=== PATIENT | female | born 1955 | race Caucasian/White ===

== ENCOUNTER 2017-04-30 17:01 | Outpatient (CLI) | payer BC ==
[2017-04-30 18:27] LABS: Hematocrit 44.3 % (36.0-47.0); Mean Platelet Volume 8.3 fL (7.4-10.4); Red Blood Cell (RBC) Count 4.81 mill/uL (4.20-5.40); White Blood Cell (WBC) Count 8.4 thou/uL (4.8-10.8)
[2017-04-30 18:49] LABS: ALT (SGPT) 16 U/L (8-55); AST (SGOT) 21 U/L (5-34); Alkaline Phosphatase 89 U/L (40-150); Anion Gap 12 mmol/L (10-20); BUN (Urea Nitrogen) 16 mg/dL (9.8-20.1); Bilirubin, Direct 0.2 mg/dL (0.1-0.3); Bilirubin, Total 0.6 mg/dL (0.2-1.2); Calc. Creatinine Clearance 0 mL/min (70-130); Calcium 9.8 mg/dL (7.8-10.44); Carbon Dioxide 28 mmol/L (22-29); Chloride 101 mmol/L (98-107); Estimated GFR-MDRD 79; Hemoglobin A1c 5.2 % (4.0-6.0); Protein, Total 7.3 g/dL (6.0-8.3)
--- NOTE | 2017-04-30 19:34 | RAD ---
CHEST PA AND LATERAL: 04/30/17 HISTORY: 61-year-old female for preoperative evaluation. COMPARISON: 08/15/14. FINDINGS: Heart size is normal. The lungs are clear. IMPRESSION: No acute intrathoracic disease. No evidence for pneumonia. Gastric lap band in place. POS: [facility]
--- NOTE | 2017-05-03 17:54 | EKG ---
Test Reason : Blood Pressure : / mmHG Vent. Rate : 061 BPM Atrial Rate : 061 BPM P-R Int : 144 ms QRS Dur : 092 ms QT Int : 434 ms P-R-T Axes : 054 017 045 degrees QTc Int : 436 ms Normal sinus rhythm Inferior infarct , age undetermined Abnormal ECG When compared with ECG of 15-AUG-2014 21:36, No significant change was found Confirmed by KALA NEVAREZ ([id number]) on 05/03/2017 5:54:16 PM Referred By: Confirmed By:KALA NEVAREZ
== END 2017-04-30 17:02 | disposition home or self-care (01) ==
LOC: LABBT 17:01
PROVIDERS: ATTEND Surgery
DX: Z01.818 Encounter for other preprocedural examination (principal); K94.23 Gastrostomy malfunction
CPT/HCPCS: 71020; 80053; 80076; 83036; 85027; 93005; 93010

== ENCOUNTER 2018-03-01 11:43 | Outpatient (CLI) | payer BC | END 2018-03-01 11:44 | disposition home or self-care (01) | LOC: BICMAMMO 11:43 | PROVIDERS: ATTEND Obstetrics & Gynecology | DX: Z12.31 Encounter for screening mammogram for malignant neoplasm of breast (principal); Z80.3 Family history of malignant neoplasm of breast | CPT/HCPCS: 77066; G0279 ==

== ENCOUNTER 2018-12-03 08:32 | Outpatient (CLI) | payer BC ==
--- NOTE | 2018-12-03 09:09 | ULT ---
US Abdominal History: [Abdominal pain] Comparison: None. Findings: Real-time grayscale and color evaluation of the abdomen was performed. Pancreas appears be mildly atrophied. This portion of the aorta and IVC are unremarkable. Diffuse hepatic steatosis. Liver measures 15.9 cm in length. There is cholelithiasis. Portal vein is patent with antegrade flow. Gallbladder wall is a 3 mm area no pericholecystic fluid. Common bile duct is 4 mm. Right kidney measures 11.5 x 4.7 x 4.8 cm without mass, hydronephrosis, or abnormal calcifications. Spleen measures 11.6 cm in length. Left kidney measures 11.7 x 5.7 x 5.1 cm without mass, hydronephrosis, or abnormal calcifications. Impression: 1. Diffuse hepatic steatosis. 2. Cholelithiasis without cholecystitis.
== END 2018-12-03 08:33 | disposition home or self-care (01) ==
LOC: SCSULT 08:32
PROVIDERS: ATTEND Internal Medicine
DX: R10.9 Unspecified abdominal pain (principal); K80.20 Calculus of gallbladder without cholecystitis without obstruction; K76.0 Fatty (change of) liver, not elsewhere classified
CPT/HCPCS: 76700

== ENCOUNTER 2019-02-28 12:10 | Outpatient (CLI) | payer BC ==
[2019-02-28 13:12] LABS: #Eosinphils 0.1 thou/uL (0.0-0.7); #Lymphocytes 2.7 thou/uL (1.20-3.40); #Monocytes 0.8 thou/uL (0.11-0.59); #Neutrophils 7.1 thou/uL (1.40-6.50); %Basophils 0.3 % (0.0-1.0); %Eosinophils 1.2 % (0.0-10.0); %Lymphocytes 25.3 % (21.0-51.0); %Monocytes 7.3 % (0.0-10.0); %Neutrophils 65.8 % (42.0-75.0); Hemoglobin 15.8 g/dL (12.0-16.0); Mean Corpuscular HGB CONC 33.5 g/dL (32.0-36.0); Mean Corpuscular Hemoglobin 30.2 pg (27.0-31.0); Mean Corpuscular Volume 90.3 fL (78.0-98.0); Mean Platelet Volume 8.6 fL (7.4-10.4); Platelet Count 288 thou/uL (130-400); RBC Distribution Width 12.6 % (11.5-14.5); Red Blood Cell (RBC) Count 5.21 mill/uL (4.20-5.40); White Blood Cell (WBC) Count 10.8 thou/uL (4.8-10.8)
[2019-02-28 13:35] LABS: ALT (SGPT) 27 U/L (8-55); AST (SGOT) 22 U/L (5-34); Albumin 4.4 g/dL (3.4-4.8); Alkaline Phosphatase 112 U/L (40-150); Anion Gap 13 mmol/L (10-20); BUN (Urea Nitrogen) 14 mg/dL (9.8-20.1); Bilirubin, Direct 0.2 mg/dL (0.1-0.3); Bilirubin, Total 0.5 mg/dL (0.2-1.2); Calc. Creatinine Clearance 0 mL/min (70-130); Calcium 9.9 mg/dL (7.8-10.44); Carbon Dioxide 25 mmol/L (23-31); Chloride 104 mmol/L (98-107); Estimated GFR-MDRD 80; Glucose 99 mg/dL (80-115); Protein, Total 7.3 g/dL (6.0-8.3); Sodium 138 mmol/L (136-145)
--- NOTE | 2019-03-01 18:49 | EKG ---
Test Reason : Blood Pressure : / mmHG Vent. Rate : 069 BPM Atrial Rate : 069 BPM P-R Int : 144 ms QRS Dur : 084 ms QT Int : 398 ms P-R-T Axes : 041 012 035 degrees QTc Int : 426 ms Normal sinus rhythm Inferior infarct (cited on or before 30-APR-2017) Anterior infarct , age undetermined Abnormal ECG When compared with ECG of 30-APR-2017 17:38, Anterior infarct is now Present Nonspecific T wave abnormality now evident in Anterior leads Confirmed by JOSEPH PETTIT, DR. Rogers ([id number]) on 03/01/2019 6:49:23 PM Referred By: REINALDO Confirmed By:DR. Ken RUIZ MD
== END 2019-02-28 12:11 | disposition home or self-care (01) ==
LOC: LABBT 12:10
PROVIDERS: ATTEND Surgery
DX: Z01.818 Encounter for other preprocedural examination (principal); K80.20 Calculus of gallbladder without cholecystitis without obstruction
CPT/HCPCS: 80048; 80076; 85025; 93005; 93010

== ENCOUNTER 2019-03-01 06:23 | Day surgery (SDC) | payer BC ==
[2019-02-28 12:13] VITALS: BMI 34.0
[2019-03-01] MEDS ORDERED: Midazolam HCl 2 mg/2 ml Vial ONE (06:36)
[2019-03-01] MEDS ORDERED: Fentanyl 100 MCG/2 ML VIAL ONE ×2 (06:36→08:33)
[2019-03-01] MEDS ORDERED: ceFAZolin Sodium (SDC) 2 GM/100 ML BAG ONE (06:48)
[2019-03-01] MEDS ORDERED: Bupivacaine/Epinephrine 0.25% 30 ML VIAL ONE (07:42)
[2019-03-01] MEDS ORDERED: HYDROcodone/Acetaminophen 5/325 mg Tablet ONE (10:01)
[2019-03-01] MEDS ORDERED: diphenhydrAMINE 50 MG/ML VIAL ONE (10:01)
--- NOTE | 2019-03-01 10:10 | OP ---
DATE OF PROCEDURE: 03/01/2019 PREOPERATIVE DIAGNOSES: Symptomatic gallstones and history of chronic steatohepatitis. POSTOPERATIVE DIAGNOSES: Symptomatic gallstones and history of chronic steatohepatitis. PROCEDURES PERFORMED: 1. Laparoscopic cholecystectomy. 2. Percutaneous liver biopsy. ANESTHESIA: General ESTIMATED BLOOD LOSS: Minimal. COMPLICATIONS: None. SPECIMEN: Gallbladder and liver biopsy. DESCRIPTION OF PROCEDURE: The patient was taken to the operating room and laid supine on the operating room table. After general anesthetic was obtained, the abdomen was prepped and draped in a sterile fashion. A curved incision was made below the umbilicus. Cautery was used to dissect down to the umbilical fascia. Umbilical fascia was incised and held up using a Ivania. The abdominal cavity was entered using a Peggy clamp. Holding stitch of Vicryl was placed on each side of the fascia. Hargrove trocar was placed. High-flow pneumoperitoneum was obtained. An upper midline 5 mm port and 2 right upper quadrant 5 mm ports were placed under direct camera visualization. The gallbladder was retracted from the gallbladder fossa. The peritoneum of the gallbladder was opened anteriorly and posteriorly. The critical view triangle was seen showing only the cystic duct and cystic artery branching from medial to lateral. There were no other branching structures. Two clips were placed proximally on the cystic duct and one laterally. It was cut using laparoscopic scissors. The cystic artery was taken in the same way. Electrocautery was then used to dissect the gallbladder out of the gallbladder fossa. The gallbladder was placed in an Endo catch bag and brought out through the Hargrove. There was no bleeding or bile in the liver bed. The cystic duct stump and cystic artery stump were intact, without evidence of extravasation or bleeding. All port sites were infiltrated using local anesthesia. All ports were removed under camera visualization. Pneumoperitoneum was let down. The Vicryl was used to close the fascial defect below the umbilicus. All incisions were irrigated and closed using 4-0 Monocryl and Dermabond. After the gallbladder was removed. The core needle biopsy was used to obtain three good cores of liver tissue. The bleeding at the liver edge was controlled using cautery. There was no ongoing bleeding. The patient was en route to Recovery in stable condition. All instrument counts, needle counts, and lap counts were correct. Job ID: [id number]
== END 2019-03-01 11:10 | disposition home or self-care (01) ==
LOC: SDC 06:23
PROVIDERS: ATTEND Surgery
PROC: 0F903ZX Drainage of Liver, Percutaneous Approach, Diagnostic (ICD-10-PCS; principal; 2019-03-01)
PROC: 0FT44ZZ Resection of Gallbladder, Percutaneous Endoscopic Approach (ICD-10-PCS; principal; 2019-03-01)
DX: K80.10 Calculus of gallbladder with chronic cholecystitis without obstruction (principal); K76.0 Fatty (change of) liver, not elsewhere classified; E06.3 Autoimmune thyroiditis; Z79.899 Other long term (current) drug therapy; Z88.2 Allergy status to sulfonamides
CPT/HCPCS: 80048; 80076; 85025; 88304; 88307; 88313; 93005; 93010; J0690; J1200; J2250; J3010

== ENCOUNTER 2020-03-16 14:02 | Outpatient (CLI) | payer BC ==
--- NOTE | 2020-03-16 14:42 | MMO ---
Left Breast MAMMO Unilat Diag DDI LT+LYNETTE. CLINICAL HISTORY: Patient is 64 years old and is seen for additional evaluation requested from prior study. The patient has the following family history of breast cancer: mother, malignant (generic), OVARIAN. The patient has no personal history of cancer. The patient has a history of left Ultrasound Guided Core Biopsy in Nov, 2009 - benign and right Excisional Biopsy in 1994 - benign. VIEWS: The views performed were: left mediolateral oblique spot compression with tomosynthesis and left mediolateral with tomosynthesis. FILMS COMPARED: The present examination has been compared to prior imaging studies performed at [facility] on 03/02/2020, and at [facility] on 02/05/2016, 01/29/2017 and 03/01/2018. This study has been interpreted with the assistance of computer-aided detection. MAMMOGRAM FINDINGS: The breast is heterogeneously dense, which could obscure a lesion on mammography. There are multiple stable nodules of varying size with circumscribed margins seen in the left breast. There are no suspicious masses, suspicious calcifications, or new areas of architectural distortion. IMPRESSION: THERE IS NO MAMMOGRAPHIC EVIDENCE OF MALIGNANCY. A ROUTINE FOLLOW-UP MAMMOGRAM IN 1 YEAR IS RECOMMENDED. THE RESULTS OF THIS EXAM WERE SENT TO THE PATIENT. ACR BI-RADS Category 2 - Benign finding MAMMOGRAPHY NOTE: 1. A negative mammogram report should not delay a biopsy if a dominant of clinically suspicious mass is present. 2. Approximately 10% to 15% of breast cancers are not detected by mammography. 3. Adenosis and dense breasts may obscure an underlying neoplasm. Reported by: JOCE LUCAS MD Electonically Signed: [id number]
== END 2020-03-16 14:03 | disposition home or self-care (01) ==
LOC: BICMAMMO 14:02
PROVIDERS: ATTEND Obstetrics & Gynecology
DX: R92.2 Inconclusive mammogram (principal)
CPT/HCPCS: G0279

== ENCOUNTER 2022-03-05 11:52 | Outpatient (CLI) | payer BC | END 2022-03-05 11:53 | disposition home or self-care (01) | LOC: BICMAMMO 11:52 | PROVIDERS: ATTEND Obstetrics & Gynecology | DX: Z12.31 Encounter for screening mammogram for malignant neoplasm of breast (principal); Z91.89 Other specified personal risk factors, not elsewhere classified; Z80.3 Family history of malignant neoplasm of breast; Z85.89 Personal history of malignant neoplasm of other organs and systems | CPT/HCPCS: 77063; 77067 ==

== ENCOUNTER 2023-03-17 13:22 | Outpatient (CLI) | payer BC | END 2023-03-17 13:23 | disposition home or self-care (01) | LOC: BICMAMMO 13:22 | PROVIDERS: ATTEND Obstetrics & Gynecology | DX: Z12.31 Encounter for screening mammogram for malignant neoplasm of breast (principal) | CPT/HCPCS: 77063; 77067 ==

== ENCOUNTER 2024-03-17 09:00 | Outpatient (CLI) | payer BC | END 2024-03-17 09:01 | disposition home or self-care (01) | LOC: BICMAMMO 09:00 | PROVIDERS: ATTEND Obstetrics & Gynecology | DX: Z12.31 Encounter for screening mammogram for malignant neoplasm of breast (principal); Z80.3 Family history of malignant neoplasm of breast; Z91.89 Other specified personal risk factors, not elsewhere classified | CPT/HCPCS: 77063; 77067 ==

== ENCOUNTER 2025-03-15 15:06 | Outpatient (CLI) | payer BC | END 2025-03-15 15:07 | disposition home or self-care (01) | LOC: SCSRAD 15:06 | PROVIDERS: ATTEND Nurse Practitioner Family | DX: S29.9XXA Unspecified injury of thorax, initial encounter (principal) ==

== ENCOUNTER 2025-03-30 12:21 | Outpatient (CLI) | payer BC | END 2025-03-30 12:22 | disposition home or self-care (01) | LOC: BICMAMMO 12:21 | PROVIDERS: ATTEND Obstetrics & Gynecology | DX: Z12.31 Encounter for screening mammogram for malignant neoplasm of breast (principal); Z80.3 Family history of malignant neoplasm of breast; Z91.89 Other specified personal risk factors, not elsewhere classified | CPT/HCPCS: 77063; 77067 ==

== ENCOUNTER 2025-06-08 10:31 | Outpatient (CLI) | payer BC | END 2025-06-08 10:32 | disposition home or self-care (01) | LOC: SCSBT 10:31 | PROVIDERS: ATTEND Family Medicine | DX: Z78.0 Asymptomatic menopausal state (principal); M85.851 Other specified disorders of bone density and structure, right thigh | CPT/HCPCS: 77080 ==